=== PATIENT | female | born 1975 | race Hispanic/Latino ===

== ENCOUNTER 2017-05-10 14:33 | Emergency (ER) | payer SELFPAY | END 2017-05-10 16:08 | disposition home or self-care (01) | LOC: ERS 14:33 | DX: Z77.21 Contact with and (suspected) exposure to potentially hazardous body fluids (principal); F41.9 Anxiety disorder, unspecified; F32.9 Major depressive disorder, single episode, unspecified | CPT/HCPCS: 99283 ==

== ENCOUNTER 2017-08-14 19:45 | Emergency (ER) | payer SELFPAY ==
[2017-08-14 20:08] LABS: Bilirubin Negative (Negative); Blood, Urine Small (Negative); Clarity CLOUDY (Clear); Glucose, Urine (Dipstick) Negative (Negative); Leukocyte Large (Negative); Nitrite Negative (Negative); Pregnancy Test - Urine (BHCG) Negative (Negative); Pregu Control Background? CLEAR/WHITE (CLR/WHITE); Pregu Control Bar Appear? YES (CONTROL BAR); Protein, Urine (Dipstick) 30 mg/dL (Neg-Trace); Specific Gravity 1.017 (1.002-1.036); Specific Gravity, Urine 1.017 (1.002-1.036)
[2017-08-14 20:11] LABS: Bacteria/HPF 3+ HPF (None Seen); Hyaline Casts/LPF 4-6 HYALINE CAST LPF (0-3 Hyaline); Pathc Cast-AUWi Flag 0.87 (0-2.49)
[2017-08-14 20:27] LABS: #Lymphocytes 1.4 thou/uL (1.20-3.40); #Monocytes 0.8 thou/uL (0.11-0.59); #Neutrophils 7.5 thou/uL (1.40-6.50); %Basophils 0.4 % (0.0-1.0); %Eosinophils 0.4 % (0.0-10.0); %Lymphocytes 14.6 % (21.0-51.0); %Monocytes 8.1 % (0.0-10.0); %Neutrophils 76.7 % (42.0-75.0); Mean Corpuscular HGB CONC 34.5 g/dL (32.0-36.0); Mean Corpuscular Hemoglobin 32.9 pg (27.0-31.0); Mean Corpuscular Volume 95.3 fL (78.0-98.0); Mean Platelet Volume 7.3 fL (7.4-10.4); Platelet Count 206 thou/uL (130-400); RBC Distribution Width 11.5 % (11.5-14.5); Red Blood Cell (RBC) Count 4.56 mill/uL (4.20-5.40); White Blood Cell (WBC) Count 9.8 thou/uL (4.8-10.8)
[2017-08-14 20:48] LABS: ALT (SGPT) 13 U/L (8-55); AST (SGOT) 17 U/L (5-34); Albumin 4.2 g/dL (3.5-5.0); Alkaline Phosphatase 61 U/L (40-150); Anion Gap 13 mmol/L (10-20); BUN (Urea Nitrogen) 7 mg/dL (7.0-18.7); Calc. Creatinine Clearance 0 mL/min (70-130); Calcium 9.5 mg/dL (7.8-10.44); Carbon Dioxide 22 mmol/L (22-29); Chloride 104 mmol/L (98-107); Estimated GFR-MDRD 87; Globulin 3.2 g/dL (2.4-3.5); Glucose 112 mg/dL (70-105); Lipase 32 U/L (8-78); Potassium 3.5 mmol/L (3.5-5.1); Protein, Total 7.4 g/dL (6.0-8.3); Sodium 135 mmol/L (136-145)
[2017-08-14] MEDS ORDERED: Acetaminophen 500 MG TAB ONE (21:06)
[2017-08-14] MEDS ORDERED: cefTRIAXone\\ROCEPHIN 2 GM VIAL ONE (21:50)
--- NOTE | 2017-08-15 00:27 | CT ---
ABDOMEN CT WITHOUT CONTRAST: PELVIS CT WITHOUT CONTRAST: HISTORY: Left flank pain, radiating to the groin, since yesterday. Dysuria. Vaginal discharge. Fevers and c hills. COMPARISON: None. TECHNIQUE: Abdomen and pelvis CT is performed without IV or oral contrast. Coronal reformatted images are submi tted for interpretation. FINDINGS: ABDOMEN: The lung bases are clear. Minimal scar or atelectasis may be present. Heart size is normal. No pericardial effusion. The descending thoracic aorta and abdominal aorta amin ve a normal caliber. No periaortic fat stranding. The gallbladder is unremarkable. Limited evaluation of the solid organs by lack of IV contrast. Grossly, the liver, spleen, pancreas, and adrenal glands are unremarkable. The gallbladder is unremarkable. No gastrohepatic, retrocrural or periportal lymphadenopathy. No mesenteric mass, lymphadenopathy, free air, or free fluid. Limited evaluation of the aliment canal due to lack of oral contrast administration. The gastric muc mayela, duodenum, and small bowel loops are grossly unremarkable. The ileocecal junction is normal. No rmal caliber appendix. A nondistended, nondilated colon is noted. There are nonspecific, slightly prominent left periaortic aortic lymph nodes with zhang-lymph node fat stranding. The largest of these lymph nodes measure 0.7 x 0.6 cm. Bilaterally, no hydronephrosis, nephrolithiasis, or perinephric stranding. The bilateral ureters hav e a normal catheter. No hydroureter, periurethral fat stranding, or ureterolithiasis. PELVIS: The uterus and adnexal structures are grossly unremarkable. No pelvic mass, lymphadenopathy , free air, or free fluid. The urinary bladder is unremarkable. Blastic lesions in the osseous structures. IMPRESSION: No evidence of nephrolithiasis or obstructive uropathy. No evidence of bowel obstruction. A normal caliber appendix is noted. lateral. Nonspecific, mildly prominent left periaortic lymph nodes with periaortic fat stranding. POS: [facility]
[2017-08-15] MEDS ORDERED: Ketorolac Tromethamine 30 MG/ML VIAL ONE (00:45)
[2017-08-15] MEDS ORDERED: Azithromycin 250 MG TAB ONE (00:45)
[2017-08-15 22:35] LABS: Chlamydia by PCR Not Detected (NotDetected); GC by PCR Not Detected (NotDetected)
== END 2017-08-15 01:00 | disposition home or self-care (01) ==
LOC: ERS 19:45
DX: N12 Tubulo-interstitial nephritis, not specified as acute or chronic (principal); F41.9 Anxiety disorder, unspecified; F32.9 Major depressive disorder, single episode, unspecified; Z87.891 Personal history of nicotine dependence; Z79.899 Other long term (current) drug therapy
CPT/HCPCS: 36415; 74176; 80053; 81003; 81015; 81025; 83690; 85025; 87077; 87086; 87186; 87480; 87491; 87510; 87591; 87660; 96361; 96365; 96375; 96376; J0696; J1885; J2270

== ENCOUNTER 2017-12-11 11:06 | Emergency (ER) | payer MEDICAID, SELFPAY ==
[2017-12-11 11:55] LABS: Bilirubin Negative (Negative); Blood, Urine Large (Negative); Clarity CLOUDY (Clear); Glucose, Urine (Dipstick) Negative (Negative); Leukocyte Large (Negative); Nitrite Negative (Negative); Pregnancy Test - Urine (BHCG) Negative (Negative); Pregu Control Background? CLEAR/WHITE (CLR/WHITE); Pregu Control Bar Appear? YES (CONTROL BAR); Protein, Urine (Dipstick) Negative (Neg-Trace); Specific Gravity 1.019 (1.002-1.036); Specific Gravity, Urine 1.019 (1.002-1.036); Urobilinogen 0.2 mg/dL (0.2-1.0)
[2017-12-11 11:57] LABS: Bacteria/HPF Rare-Few HPF (None Seen); Hyaline Casts/LPF 7-10 HYALINE CAST LPF (0-3 Hyaline); Pathc Cast-AUWi Flag 0.58 (0-2.49); Squamous Epithelial 0-3 HPF (0-3)
[2017-12-11 12:10] LABS: Yeast-All Forms None Seen HPF (None Seen)
[2017-12-11] MEDS ORDERED: Ketorolac Tromethamine 60 MG/2 ML VIAL ONE (13:24)
== END 2017-12-11 14:03 | disposition left against medical advice (07) ==
LOC: ERS 11:06
DX: N76.4 Abscess of vulva (principal); F32.9 Major depressive disorder, single episode, unspecified; F41.9 Anxiety disorder, unspecified; Z87.891 Personal history of nicotine dependence; Z79.899 Other long term (current) drug therapy
CPT/HCPCS: 81003; 81015; 81025; 87086; 96372; J1885

== ENCOUNTER 2017-12-22 07:51 | Emergency (ER) | payer MEDICAID | END 2017-12-22 08:40 | disposition left against medical advice (07) | LOC: ERS 07:51 | DX: Z53.21 Procedure and treatment not carried out due to patient leaving prior to being seen by health care provider (principal) ==

== ENCOUNTER 2018-03-07 09:25 | Outpatient (CLI) | payer OTHER ==
--- NOTE | 2018-03-07 14:36 | NM ---
NUCLEAR MEDICINE BONE SCAN WHOLE BODY: (SKELETAL SCINTIGRAPHY) DATE: 03/07/2018. 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 TECHNIQUE: IV injection of [id number]: 33.0 mCi. 3 hour delayed whole body skeletal scintigraphy in anterior and posterior views. FINDINGS: The distribution of radiopharmaceutical is homogeneous and normal throughout the skeleton, with no fo ci of significantly abnormally increased uptake. IMPRESSION: Normal. star [] POS: [facility]
== END 2018-03-07 09:26 | disposition home or self-care (01) ==
LOC: NM 09:25
PROVIDERS: ATTEND Nurse Practitioner Family
DX: M89.9 Disorder of bone, unspecified (principal)
CPT/HCPCS: 78306; A9503

== ENCOUNTER 2018-06-14 13:49 | Emergency (ER) | payer OTHER ==
[2018-06-14] MEDS ORDERED: Ondansetron ODT 4 MG TAB ONE (14:00)
[2018-06-14 14:13] LABS: Bilirubin Negative (Negative); Blood, Urine Negative (Negative); Clarity CLEAR (Clear); Glucose, Urine (Dipstick) Negative (Negative); Leukocyte Negative (Negative); Nitrite Negative (Negative); Protein, Urine (Dipstick) Negative (Neg-Trace); Specific Gravity, Urine 1.014 (1.002-1.036); Urobilinogen 0.2 mg/dL (0.2-1.0); pH, Urine 5.5 (5.0-9.0)
[2018-06-14 14:40] LABS: #Basophils 0.1 thou/uL (0.0-0.2); #Eosinphils 0.1 thou/uL (0.0-0.7); #Lymphocytes 1.8 thou/uL (1.20-3.40); #Monocytes 0.4 thou/uL (0.11-0.59); #Neutrophils 3.4 thou/uL (1.40-6.50); %Basophils 1.5 % (0.0-1.0); %Eosinophils 1.7 % (0.0-10.0); %Lymphocytes 30.3 % (21.0-51.0); %Monocytes 7.6 % (0.0-10.0); Hemoglobin 15.1 g/dL (12.0-16.0); Mean Corpuscular HGB CONC 34.3 g/dL (32.0-36.0); Mean Corpuscular Hemoglobin 33.2 pg (27.0-31.0); Mean Corpuscular Volume 96.7 fL (78.0-98.0); Mean Platelet Volume 8.4 fL (7.4-10.4); Platelet Count 201 thou/uL (130-400); RBC Distribution Width 11.7 % (11.5-14.5); Red Blood Cell (RBC) Count 4.56 mill/uL (4.20-5.40); White Blood Cell (WBC) Count 5.8 thou/uL (4.8-10.8)
--- NOTE | 2018-06-14 14:43 | CT ---
CT ABDOMEN AND PELVIS WITHOUT CONTRAST: HISTORY: Abdominal pain radiating to the left back. Urinary frequency. The patient has had a right-sided oop horectomy. COMPARISON: 08/14/2017 FINDINGS: Absence of oral and IV contrast reduces the sensitivity of the exam, particularly for evaluation of s olid organs involved. The lung bases are clear. No free air or free fluid is seen in the abdomen or pelvis. No calcified gallstones are seen. No calculi are seen in the kidneys, ureters, or urinary bladder. No hydroureteronephrosis is seen on either side. A uterus is present. Multiple pelvic phleboliths are again seen. There are mild degenerative change s in the spine. Sclerotic focus, likely bone island, in the left supra-acetabular region is again se en. A normal appearing appendix is noted. IMPRESSION: No CT evidence of urinary tract calculi or obstruction. POS: [facility]
[2018-06-14 15:07] LABS: ALT (SGPT) 16 U/L (8-55); AST (SGOT) 14 U/L (5-34); Albumin 4.5 g/dL (3.5-5.0); Alkaline Phosphatase 61 U/L (40-150); Anion Gap 13 mmol/L (10-20); BUN (Urea Nitrogen) 12 mg/dL (7.0-18.7); Bilirubin, Total 0.5 mg/dL (0.2-1.2); Calc. Creatinine Clearance 0 mL/min (70-130); Calcium 9.7 mg/dL (7.8-10.44); Carbon Dioxide 20 mmol/L (22-29); Chloride 107 mmol/L (98-107); Estimated GFR-MDRD 85; Globulin 3.1 g/dL (2.4-3.5); Glucose 83 mg/dL (70-105); Potassium 3.7 mmol/L (3.5-5.1); Protein, Total 7.6 g/dL (6.0-8.3); Sodium 136 mmol/L (136-145)
[2018-06-14 15:59] LABS: Pregnancy Test - Urine (BHCG) Negative (Negative); Pregu Control Background? CLEAR/WHITE (CLR/WHITE); Pregu Control Bar Appear? YES (CONTROL BAR); Specific Gravity 1.014 (1.002-1.036)
--- NOTE | 2018-06-14 16:01 | RAD ---
Exam: Chest one view HISTORY:Pain Comparison: None FINDINGS: Cardiac silhouette: Normal Pulmonary vessels: Normal Costophrenic angles: Clear LUNGS: No masses or consolidation. Pneumothorax: None Osseous abnormalities: None IMPRESSION: No acute cardiopulmonary process.
== END 2018-06-14 16:58 | disposition home or self-care (01) ==
LOC: ERS 13:49
DX: R10.9 Unspecified abdominal pain (principal); F41.9 Anxiety disorder, unspecified; F32.9 Major depressive disorder, single episode, unspecified; Z87.891 Personal history of nicotine dependence; Z79.899 Other long term (current) drug therapy
CPT/HCPCS: 36415; 71045; 74176; 80053; 81003; 81025; 85025; 87086; Q0162

== ENCOUNTER 2019-03-11 08:41 | Emergency (ER) | payer OTHER ==
[2019-03-11] MEDS ORDERED: Mag-Al 1200 mg/1200 mg/30 ML UDCUP ONE (09:47)
[2019-03-11] MEDS ORDERED: Lidocaine Viscous Sol 2% 15 ml UD Cup ONE (09:47)
[2019-03-11 10:02] LABS: #Eosinphils 0.2 thou/uL (0.0-0.7); #Lymphocytes 1.5 thou/uL (1.20-3.40); #Monocytes 0.3 thou/uL (0.11-0.59); #Neutrophils 2.4 thou/uL (1.40-6.50); %Basophils 0.6 % (0.0-1.0); %Eosinophils 3.9 % (0.0-10.0); %Lymphocytes 32.8 % (21.0-51.0); %Monocytes 7.6 % (0.0-10.0); %Neutrophils 55.1 % (42.0-75.0); BHCG - Serum Negative (NEGATIVE); Hemoglobin 14.1 g/dL (12.0-16.0); Mean Corpuscular HGB CONC 33.6 g/dL (32.0-36.0); Mean Corpuscular Hemoglobin 32.4 pg (27.0-31.0); Mean Corpuscular Volume 96.6 fL (78.0-98.0); Mean Platelet Volume 8.4 fL (7.4-10.4); Platelet Count 212 thou/uL (130-400); Pregs Control Background? CLEAR/WHITE (CLR/WHITE); Pregs Control Bar Appear? YES (CONTROL BAR); RBC Distribution Width 11.5 % (11.5-14.5); Red Blood Cell (RBC) Count 4.35 mill/uL (4.20-5.40); White Blood Cell (WBC) Count 4.4 thou/uL (4.8-10.8)
--- NOTE | 2019-03-11 10:06 | RAD ---
EXAM: Single view of the chest HISTORY: Left chest pain COMPARISON: 06/14/2018 FINDINGS: Single view of the chest shows a normal sized cardiomediastinal silhouette. There is no ralph dence of consolidation, mass, or pleural effusion. The bones are unremarkable. IMPRESSION: No evidence of acute cardiopulmonary disease
[2019-03-11 10:15] LABS: ALT (SGPT) 22 U/L (8-55); AST (SGOT) 16 U/L (5-34); Alkaline Phosphatase 61 U/L (40-110); Anion Gap 11 mmol/L (10-20); BUN (Urea Nitrogen) 10 mg/dL (7.0-18.7); Bilirubin, Total 0.5 mg/dL (0.2-1.2); Calc. Creatinine Clearance 0 mL/min (70-130); Calcium 8.5 mg/dL (7.8-10.44); Carbon Dioxide 22 mmol/L (22-29); Chloride 107 mmol/L (98-107); Estimated GFR-MDRD 88; Globulin 2.7 g/dL (2.4-3.5); Glucose 76 mg/dL (70-105); Potassium 3.8 mmol/L (3.5-5.1); Protein, Total 6.7 g/dL (6.0-8.3); Sodium 136 mmol/L (136-145)
[2019-03-11] MEDS ORDERED: Aspirin Chewable 81 MG TAB ONE (10:34)
[2019-03-11] MEDS ORDERED: Ondansetron ODT 4 MG TAB ONE (11:40)
== END 2019-03-11 11:45 | disposition home or self-care (01) ==
LOC: ERS 08:41
DX: R07.89 Other chest pain (principal); F41.9 Anxiety disorder, unspecified; F32.9 Major depressive disorder, single episode, unspecified; Z87.891 Personal history of nicotine dependence; Z79.899 Other long term (current) drug therapy
CPT/HCPCS: 36415; 71045; 80053; 84484; 84703; 85025; 85379; 93005; Q0162

== ENCOUNTER 2019-06-24 01:17 | Emergency (ER) | payer OTHER ==
[2019-06-24] MEDS ORDERED: Ketorolac Tromethamine 30 MG/ML VIAL ONE (02:22)
== END 2019-06-24 02:47 | disposition home or self-care (01) ==
LOC: ERS 01:17
DX: K03.81 Cracked tooth (principal); K08.89 Other specified disorders of teeth and supporting structures; F41.9 Anxiety disorder, unspecified; F32.9 Major depressive disorder, single episode, unspecified; Z87.891 Personal history of nicotine dependence; Z79.899 Other long term (current) drug therapy
CPT/HCPCS: 96372; 99282; J1885

== ENCOUNTER 2019-06-25 12:58 | Emergency (ER) | payer OTHER | END 2019-06-25 14:15 | disposition home or self-care (01) | LOC: ERS 12:58 | DX: K03.81 Cracked tooth (principal); K08.89 Other specified disorders of teeth and supporting structures; F41.9 Anxiety disorder, unspecified; F32.9 Major depressive disorder, single episode, unspecified; Z79.899 Other long term (current) drug therapy; Z87.891 Personal history of nicotine dependence | CPT/HCPCS: 99281 ==

== ENCOUNTER 2019-10-25 13:27 | Outpatient (CLI) | payer OTHER ==
--- NOTE | 2019-10-25 14:34 | MMO ---
Bilateral MAMMO Bilat Diag [facility]. CLINICAL HISTORY: Patient is 44 years old and is seen for diagnostic exam. The patient has no family history of breast cancer. The patient has no personal history of cancer. VIEWS: The views performed were: bilateral craniocaudal with tomosynthesis; bilateral mediolateral oblique with tomosynthesis; and bilateral mediolateral with tomosynthesis. FILMS COMPARED: The present examination has been compared to a prior imaging study performed at [facility] on 10/25/2019. This study has been interpreted with the assistance of computer-aided detection. MAMMOGRAM FINDINGS: The breasts are heterogeneously dense, which could obscure a lesion on mammography. Ultrasound of the palpable finding in the left upper outer breast was shown to be cysts. There are no suspicious masses, suspicious calcifications, or new areas of architectural distortion. IMPRESSION: THERE IS NO MAMMOGRAPHIC EVIDENCE OF MALIGNANCY. A ROUTINE FOLLOW-UP MAMMOGRAM IN 1 YEAR IS RECOMMENDED. THE RESULTS OF THIS EXAM WERE SENT TO THE PATIENT. ACR BI-RADS Category 2 - Benign finding MAMMOGRAPHY NOTE: 1. A negative mammogram report should not delay a biopsy if a dominant of clinically suspicious mass is present. 2. Approximately 10% to 15% of breast cancers are not detected by mammography. 3. Adenosis and dense breasts may obscure an underlying neoplasm. Reported by: JUDY GAN MD Electonically Signed: [id number]
--- NOTE | 2019-10-25 15:03 | ULT ---
LEFT BREAST ULTRASOUND: HISTORY: Palpable mass of the left breast. FINDINGS: Correlation is made with mammogram of the same date. FINDINGS: Sonographic evaluation of the region of palpable concern demonstrates a cyst at the 12 and 1 o'clock positions. Some of these are septated. The largest is at the 12 o'clock position measuring 1.8 cm. IMPRESSION: BIRADS category 2 - benign findings. Return to annual mammographic screening. POS: [facility]
== END 2019-10-25 13:28 | disposition home or self-care (01) ==
LOC: BICMAMMO 13:27
PROVIDERS: ATTEND Nurse Practitioner Family
DX: R92.8 Other abnormal and inconclusive findings on diagnostic imaging of breast (principal)
CPT/HCPCS: 77066; G0279

== ENCOUNTER 2020-04-11 11:18 | Emergency (ER) | payer OTHER ==
[2020-04-11] MEDS ORDERED: Iopamidol-370 76% 500 ML 1 ML ONE (11:54)
[2020-04-11] MEDS ORDERED: Acetaminophen 325 MG TAB ONE (12:44)
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
[2020-04-11] MEDS ORDERED: Ketorolac Tromethamine 30 MG/ML VIAL ONE (14:06)
[2020-04-11 14:31] LABS: Pregnancy Test - Urine (BHCG) Negative (Negative); Pregu Control Bar Appear? YES (CONTROL BAR); Specific Gravity 1.023 (1.002-1.036)
[2020-04-11 14:32] LABS: Pregu Control Background? CLEAR/WHITE (CLR/WHITE)
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
[2020-04-11] MEDS ORDERED: Ondansetron ODT 4 MG TAB ONE ×2 (15:17→15:18)
== END 2020-04-11 15:37 | disposition home or self-care (01) ==
LOC: ERS 11:18 → EEVIPCON 11:18 → ERS 15:37
DX: S00.83XA Contusion of other part of head, initial encounter (principal); S40.029A Contusion of unspecified upper arm, initial encounter; Y04.8XXA Assault by other bodily force, initial encounter; Z87.891 Personal history of nicotine dependence
CPT/HCPCS: 70486; 70498; 72072; 81025; 96374; J1885; Q0162; Q9967

== ENCOUNTER 2020-09-18 06:45 | Emergency (ER) | payer OTHER ==
[2020-09-18] MEDS ORDERED: Ondansetron PF 4 MG/2 ML Vial ONE ×2 (08:04→09:23)
[2020-09-18] MEDS ORDERED: Ketorolac Tromethamine 30 MG/ML VIAL ONE (08:04)
[2020-09-18 08:05] LABS: #Lymphocytes 0.5 thou/uL (1.20-3.40); #Monocytes 0.4 thou/uL (0.11-0.59); #Neutrophils 2.5 thou/uL (1.40-6.50); %Eosinophils 0.6 % (0.0-10.0); %Lymphocytes 13.7 % (21.0-51.0); %Neutrophils 73.8 % (42.0-75.0); Hemoglobin 13.7 g/dL (12.0-16.0); Mean Corpuscular HGB CONC 33.4 g/dL (32.0-36.0); Mean Corpuscular Hemoglobin 32.2 pg (27.0-31.0); Mean Corpuscular Volume 96.3 fL (78.0-98.0); Mean Platelet Volume 8.2 fL (7.4-10.4); Platelet Count 164 thou/uL (130-400); RBC Distribution Width 11.9 % (11.5-14.5); Red Blood Cell (RBC) Count 4.26 mill/uL (4.20-5.40); White Blood Cell (WBC) Count 3.4 thou/uL (4.8-10.8)
[2020-09-18 08:17] LABS: BHCG - Serum Negative (NEGATIVE); Pregs Control Background? CLEAR/WHITE (CLR/WHITE); Pregs Control Bar Appear? YES (CONTROL BAR)
[2020-09-18 08:27] LABS: ALT (SGPT) 16 U/L (8-55); AST (SGOT) 13 U/L (5-34); Albumin 4.1 g/dL (3.5-5.0); Alkaline Phosphatase 59 U/L (40-110); Anion Gap 10 mmol/L (10-20); BUN (Urea Nitrogen) 11 mg/dL (7.0-18.7); Bilirubin, Total 0.4 mg/dL (0.2-1.2); Calc. Creatinine Clearance 0 mL/min (70-130); Calcium 8.7 mg/dL (7.8-10.44); Carbon Dioxide 24 mmol/L (22-29); Chloride 108 mmol/L (98-107); Globulin 2.6 g/dL (2.4-3.5); Glucose 106 mg/dL (70-105); Lipase 22 U/L (8-78); Magnesium 1.8 mg/dL (1.6-2.6); Potassium 3.6 mmol/L (3.5-5.1); Protein, Total 6.7 g/dL (6.0-8.3); Sodium 138 mmol/L (136-145)
[2020-09-18] MEDS ORDERED: Morphine 4 MG/ML VIAL ONE (09:10)
[2020-09-18 09:23] LABS: Bilirubin Negative (Negative); Blood, Urine Negative (Negative); Clarity Clear (Clear); Glucose, Urine (Dipstick) Normal (Negative); Ketone, Urine Trace mg/dL (Negative); Leukocyte Negative Leu/uL (Negative); Nitrite Negative (Negative); Protein, Urine (Dipstick) Negative (Neg-Trace); Urobilinogen Normal mg/dL (Less than 2)
[2020-09-18 10:03] LABS: SARS-CoV-2 NAA Rapid Test DETECTED (NotDetected)
[2020-09-18] MEDS ORDERED: Iopamidol-370 76% 500 ML 1 ML ONE (14:33)
== END 2020-09-18 09:45 | disposition home or self-care (01) ==
LOC: ERS 06:45
DX: U07.1 COVID-19 (principal); R10.9 Unspecified abdominal pain; R11.2 Nausea with vomiting, unspecified; T50.B95A Adverse effect of other viral vaccines, initial encounter; Z87.891 Personal history of nicotine dependence; Z79.899 Other long term (current) drug therapy
CPT/HCPCS: 0240U; 36415; 74177; 80053; 81003; 83605; 83690; 83735; 84703; 85025; 94760; 96372; 96374; 96375; 96376; J0500; J1885; J2270; J2405; Q9967

== ENCOUNTER 2021-09-09 13:34 | Emergency (ER) | payer OTHER ==
[~2021-09-09 13:34] MED LIST: Iopamidol-370 76% 500 ML 1 ML ONE
[2021-09-09] MEDS ORDERED: Ketorolac Tromethamine 30 MG/ML VIAL ONE (14:47)
[2021-09-09 14:50] LABS: #Eosinphils 0.1 thou/uL (0.0-0.7); #Lymphocytes 0.5 thou/uL (1.20-3.40); #Monocytes 0.5 thou/uL (0.11-0.59); #Neutrophils 3.6 thou/uL (1.40-6.50); %Eosinophils 1.1 % (0.0-10.0); %Lymphocytes 10.9 % (21.0-51.0); %Monocytes 10.8 % (0.0-10.0); %Neutrophils 77.2 % (42.0-75.0); Hemoglobin 13.8 g/dL (12.0-16.0); Mean Corpuscular HGB CONC 34.3 g/dL (32.0-36.0); Mean Corpuscular Hemoglobin 33.5 pg (27.0-31.0); Mean Corpuscular Volume 97.4 fL (78.0-98.0); Mean Platelet Volume 8.5 fL (7.4-10.4); Platelet Count 163 thou/uL (130-400); RBC Distribution Width 11.9 % (11.5-14.5); Red Blood Cell (RBC) Count 4.12 mill/uL (4.20-5.40); White Blood Cell (WBC) Count 4.7 thou/uL (4.8-10.8)
[2021-09-09 15:07] LABS: BHCG - Serum Negative (NEGATIVE); Pregs Control Background? CLEAR/WHITE (CLR/WHITE); Pregs Control Bar Appear? YES (CONTROL BAR)
[2021-09-09 15:11] LABS: ALT (SGPT) 10 U/L (8-55); AST (SGOT) 9 U/L (5-34); Albumin 3.7 g/dL (3.5-5.0); Alkaline Phosphatase 48 U/L (40-110); Anion Gap 12 mmol/L (10-20); BUN (Urea Nitrogen) 9 mg/dL (7.0-18.7); Bilirubin, Total 0.5 mg/dL (0.2-1.2); Calc. Creatinine Clearance 0 mL/min (70-130); Calcium 8.7 mg/dL (7.8-10.44); Carbon Dioxide 21 mmol/L (22-29); Chloride 109 mmol/L (98-107); Estimated GFR 105; Globulin 2.7 g/dL (2.4-3.5); Glucose 123 mg/dL (70-105); Potassium 3.2 mmol/L (3.5-5.1); Protein, Total 6.4 g/dL (6.0-8.3); Sodium 139 mmol/L (136-145)
[2021-09-09] MEDS ORDERED: Potassium Bicarbonate/Cit Ac 25 MEQ TAB ONE (15:31)
[2021-09-09 16:50] LABS: Magnesium 1.9 mg/dL (1.6-2.6)
[2021-09-09] MEDS ORDERED: Acetaminophen 500 MG TAB ONE (17:55)
== END 2021-09-09 17:50 | disposition home or self-care (01) ==
LOC: ERS 13:34
DX: U07.1 COVID-19 (principal); Z87.891 Personal history of nicotine dependence; Z79.899 Other long term (current) drug therapy
CPT/HCPCS: 36415; 71275; 80053; 83735; 84484; 84703; 85025; 93005; 96361; 96374; J1885; Q9967

== ENCOUNTER 2021-12-28 15:04 | Outpatient (CLI) | payer OTHER | END 2021-12-28 15:05 | disposition home or self-care (01) | LOC: BICULT 15:04 | PROVIDERS: ATTEND Nurse Practitioner Women's Health | DX: R10.2 Pelvic and perineal pain (principal); R93.89 Abnormal findings on diagnostic imaging of other specified body structures; N85.4 Malposition of uterus | CPT/HCPCS: 76856 ==

== ENCOUNTER 2022-03-29 15:36 | Emergency (ER) | payer OTHER ==
[2022-03-29 16:34] LABS: #Eosinphils 0.1 thou/uL (0.0-0.7); #Lymphocytes 2.6 thou/uL (1.20-3.40); #Monocytes 0.4 thou/uL (0.11-0.59); #Neutrophils 3.5 thou/uL (1.40-6.50); %Basophils 0.2 % (0.0-1.0); %Eosinophils 2.1 % (0.0-10.0); %Lymphocytes 38.4 % (21.0-51.0); %Monocytes 6.6 % (0.0-10.0); %Neutrophils 52.7 % (42.0-75.0); Hemoglobin 14.4 g/dL (12.0-16.0); Mean Corpuscular HGB CONC 33.5 g/dL (32.0-36.0); Mean Corpuscular Hemoglobin 32.9 pg (27.0-31.0); Mean Corpuscular Volume 98.2 fl (78.0-98.0); Mean Platelet Volume 8.4 fL (7.4-10.4); Platelet Count 216 10x3/uL (130-400); RBC Distribution Width 11.6 % (11.5-14.5); Red Blood Cell (RBC) Count 4.38 mill/uL (4.20-5.40); White Blood Cell (WBC) Count 6.7 10x3/uL (4.8-10.8)
[2022-03-29 16:57] LABS: ALT (SGPT) 11 U/L (8-55); AST (SGOT) 11 U/L (5-34); Albumin 4.3 g/dL (3.5-5.0); Alkaline Phosphatase 47 U/L (40-110); Anion Gap 12 mmol/L (10-20); BUN (Urea Nitrogen) 10 mg/dL (7.0-18.7); Bilirubin, Total 0.6 mg/dL (0.2-1.2); Calc. Creatinine Clearance 0 mL/min (70-130); Calcium 9.1 mg/dL (7.8-10.44); Carbon Dioxide 23 mmol/L (22-29); Chloride 107 mmol/L (98-107); Estimated GFR 102; Globulin 2.6 g/dL (2.4-3.5); Glucose 86 mg/dL (70-105); Lipase 29 U/L (8-78); Protein, Total 6.9 g/dL (6.0-8.3); Sodium 138 mmol/L (136-145)
[2022-03-29] MEDS ORDERED: HYDROcodone/Acetaminophen 5/325 mg Tablet ONE (19:56)
[2022-03-29] MEDS ORDERED: Ketorolac Tromethamine 30 MG/ML VIAL ONE (19:56)
[2022-03-29 20:48] LABS: Bacteria/HPF 2+ HPF (None Seen); Bilirubin Negative (Negative); Blood, Urine Trace (Negative); Clarity Clear (Clear); Glucose, Urine (Dipstick) Normal (Negative); Ketone, Urine Negative (Negative); Leukocyte 75 Leu/uL (Negative); Nitrite Negative (Negative); Protein, Urine (Dipstick) Negative (Neg-Trace); RBC/HPF 0-3 HPF (0-3); Specific Gravity, Urine 1.023 (1.002-1.036); Urobilinogen Normal mg/dL (Less than 2); pH, Urine 5.5 (5.0-9.0)
== END 2022-03-29 21:22 | disposition home or self-care (01) ==
LOC: ERS 15:36
DX: N39.0 Urinary tract infection, site not specified (principal); R10.31 Right lower quadrant pain; Z87.891 Personal history of nicotine dependence
CPT/HCPCS: 36415; 76856; 80053; 81003; 81015; 83690; 85025; 93976; J1885